=== PATIENT | male | born 1960 | race Caucasian/White ===

== ENCOUNTER 2016-10-06 22:35 | Emergency (ER) | payer MEDICARE ==
[2016-10-06] MEDS ORDERED: MIDAZOLAM 2 MG/2 ML INJ IV ONE (22:47)
[2016-10-06] MEDS ORDERED: NORMAL SALINE 1000 ML 1,000 ML IV ONE ×2 (22:48→23:37)
[2016-10-06] MEDS ORDERED: MIDAZOLAM 2 MG/2 ML INJ ONE (22:48)
--- NOTE | 2016-10-06 22:49 | ER Document Report ---
ED General - General Stated Complaint: ALTERED MENTAL STATUS Time Seen by Provider: 10/06/16 22:47 Cannot obtain history due to: Altered mental status Notes: Patient is a 56-year-old male with unknown past medical history although he reports a history of anxiety who presents after apparently driving always from [facility] today specifically to come to come to [facility]. Patient states he drove for the past 16 hours without stopping except for gasoline. States he has only urinated once in the past 24 hours. History is otherwise extremely limited as patient has severely pressured speech, is tangential in his thought process and is unable to provide any meaningful information other than that he is worried that he may be having a stroke. - Related Data Allergies/Adverse Reactions: ketorolac [From Toradol] Adverse Reaction (Verified 10/06/16 22:53) Home Medications: Current Home Medications Aspirin [Ecotrin] 81 mg PO DAILY 10/06/16 [History] Buprenorphine 1 each TD 10/06/16 [History] Caffeine 2 tab PO BID 10/06/16 [History] Clonazepam [Clonazepam] 0.5 mg PO BID PRN 10/06/16 [History] Ibuprofen [Motrin 600 mg Tablet] 2 - 3 tab PO PRN PRN 10/06/16 [History] Multivitamin [Multivitamins] 1 tab PO DAILY 10/06/16 [History] Pregabalin [Lyrica 75 mg Capsule] 75 mg PO TID 10/06/16 [History] Topiramate 50 mg PO QHS 10/06/16 [History] Trazodone HCl 1 - 3 tab PO QHS PRN 10/06/16 [History] Past Medical History - General Information source: Patient Cannot obtain history due to: Uncooperative, Altered mental status - Social History Smoking Status: Never Smoker Frequency of alcohol use: None Drug Abuse: None - There is no breakdown Lives with: Other Family History: Reviewed & Not Pertinent Review of Systems - Review of Systems -: Yes ROS unobtainable due to patient's medical condition Physical Exam - Vital signs Vitals: Resp Pulse Ox 16 100 10/06/16 22:47 10/06/16 22:47 Interpretation: Hypertensive, Tachycardic, Tachypneic Notes: PHYSICAL EXAMINATION: GENERAL: Agitated, somewhat combative. HEAD: Atraumatic, normocephalic. EYES: Pupils equal round and reactive to light, extraocular movements intact, sclera anicteric, conjunctiva are normal. ENT: nares patent, oropharynx clear without exudates. Dry mucous membranes. NECK: Normal range of motion, supple without lymphadenopathy LUNGS: Breath sounds clear to auscultation bilaterally and equal. No wheezes rales or rhonchi. Hyperventilating HEART: Regular tachycardia without murmurs ABDOMEN: Soft, nontender, normoactive bowel sounds. No guarding, no rebound. No masses appreciated. EXTREMITIES: Normal range of motion, no pitting or edema. No cyanosis. NEUROLOGICAL: Face symmetric. Tongue protrudes midline. Extraocular motions intact. Pupils are 2 mm and equally reactive. Pressured, fluent speech. 5 out of 5 strength in both the distal and proximal upper and lower extremities bilaterally. Sensation is grossly intact throughout. PSYCH: Presents is acutely manic with pressured speech, tangential through process SKIN: Warm, Dry, normal turgor, no rashes or lesions noted. Course - Re-evaluation Re-evalutation: 10/06/16 22:48 Patient presents acutely agitated, tremulous, tangential thought process although does not appear to be actively responding to internal stimuli. He has very pressured speech and presents as acutely manic. The patient did drive himself here today all the way from [facility] states he only stopped for gas did not eat or drink and has only urinated once in the past 24 hours. Patient is a very otherwise difficult historian and has difficulty answering my questions. He does not have any focal neurologic deficits on examination. Does appear somewhat dehydrated and appears likewise to be having a panic attack with hyperventilation, tachycardia, and tremulousness. IV access is established, IV midabdomen will be administered. Will begin IV fluids given that he does appear dehydrated and is also quite tachycardic. Will obtain broad laboratories, CT the head, reassess. Patient is critically ill at this time and undifferentiated altered mental status and require frequent reassessments. 10/06/16 23:37 Patient is much more calm, cooperative relaxed at this time vitals have normalized after receiving Versed and fluids. CT the head is unremarkable. Laboratory to demonstrate findings consistent with acute dehydration which is consistent with patient's report that he has not really been eating or drinking over the last several days and not urinated once in the past 24 hours. He will be evaluated by psychiatry in the morning. Awaiting his urine results. He is no longer unstable at this time. 10/07/16 00:29 Patient is calm, cooperative now although remains with some mildly pressured speech. He continues to deny any acute safety concerns. He does not meet criteria for involuntary commitment at this time as he denies any acute safety concerns, has a much clearer thought process, and did not clearly present with any dangerous behavior toward anybody else. He is medically cleared at this time for evaluation in the morning. - Vital Signs Vital signs: Temp Pulse Resp BP Pulse Ox 23 H 135/92 H 94 10/06/16 23:01 10/06/16 23:01 10/06/16 23:01 - Laboratory Result Diagrams: 10/06/16 22:41 10/06/16 22:41 Laboratory results interpreted by me: 10/06/16 10/06/16 10/07/16 22:41 22:41 00:00 WBC 14.9 H RDW 14.6 H Absolute Neutrophils 9.9 H Sodium 147.2 H Chloride 119 H Carbon Dioxide 15 L BUN 31 H Creatinine 1.99 H Est GFR ( Amer) 42 L Est GFR (Non-Af Amer) 35 L Calcium 10.5 H Total Protein 8.5 H Urine Protein 100 H Urine Ascorbic Acid 20 H Salicylates < 1.0 L Acetaminophen < 10 L - Diagnostic Test Radiology reviewed: Image reviewed, Reports reviewed Radiology results interpreted by me: 10/07/16 00:29 CT head: No acute intracranial bleed - EKG Interpretation by Me Additional EKG results interpreted by me: 10/07/16 00:30 Sinus rhythm. Rate 97. Intermittent PVCs. No ST elevations or depressions. QTC is 417. Critical Care Note - Critical Care Note Total time excluding time spent on procedures (mins): 38 Comments: Critical care time spent obtaining history from patient or surrogate, discussions with consultants, development of treatment plan with patient or surrogate, evaluation of patient's response to treatment, examination of patient , ordering and performing treatments and interventions, ordering and review of laboratory studies, re-evaluation of patient's condition, ordering and review of radiographic studies and review of old charts Discharge - Discharge Clinical Impression: Manic state, Agitation Altered mental status Qualifiers: Altered mental status type: unspecified Qualified Code(s): R41.82 - Altered mental status, unspecified Condition: Stable Disposition: PSYCH HOSP/UNIT
[2016-10-06 23:10] LABS: ABSOLUTE EOSINOPHILS # (AUTO) 0.1 10^3/uL (0.0-0.6); ABSOLUTE MONOCYTES (AUTO) 0.9 10^3/uL (0.1-1.4); ABSOLUTE NEUT (AUTO) 9.9 10^3/uL (1.7-8.2); BASOPHILS % (AUTO) 0.3 % (0-2); EOSINOPHILS % (AUTO) 0.8 % (0-6); HEMATOCRIT 40.8 % (37.9-51.0); HGB HCT DIFFERENCE 1.2; LYMPHOCYTES % (AUTO) 26.6 % (13-45); MEAN CORPUSCULAR HEMOGLOBIN 31.2 pg (27.0-33.4); MEAN CORPUSCULAR HGB CONC 34.3 g/dL (32.0-36.0); MEAN CORPUSCULAR VOLUME 91 fl (80-97); MONOCYTES % (AUTO) 5.9 % (3-13); RED BLOOD COUNT 4.49 10^6/uL (4.35-5.55); RED CELL DISTRIBUTION WIDTH 14.6 % (11.5-14.0); SEGMENTED NEUTROPHILS % (AUTO) 66.4 % (42-78); WHITE BLOOD COUNT 14.9 10^3/uL (4.0-10.5)
--- NOTE | 2016-10-06 23:19 | RADIOLOGY REPORT (SQ) ---
EXAM DESCRIPTION: CT HEAD WITHOUT COMPLETED DATE/TIME: 10/06/2016 11:10 pm REASON FOR STUDY: ams COMPARISON: None. TECHNIQUE: Axial images acquired through the brain without intravenous contrast. Images reviewed wi th bone, brain and subdural windows. Images stored on PACS. All CT scanners at this facility use dose modulation, iterative reconstruction, and/or weight based d osing when appropriate to reduce radiation dose to as low as reasonably achievable (ALARA). [facility]: Dose Right [facility]: CareDose [facility]: Dose Right [facility]: Teradose 4D [facility]: Domains Income RADIATION DOSE: mGy. LIMITATIONS: None. FINDINGS: VENTRICLES: Prominent. CEREBRUM: No masses. No hemorrhage. No midline shift. Areas of low density in the white matter mos t likely due to chronic micro-vascular ischemic change. No evidence for acute infarction. CEREBELLUM: No masses. No hemorrhage. No alteration of density. No evidence for acute infarction. EXTRAAXIAL SPACES: Mild age-related involutional change. No fluid collections. No masses. ORBITS AND GLOBE: No intra- or extraconal masses. Normal contour of globe without masses. CALVARIUM: No fracture. PARANASAL SINUSES: No fluid or mucosal thickening. SOFT TISSUES: No mass or hematoma. OTHER: Atherosclerotic vascular calcifications are seen within the cavernous segments of the internal carotid arteries bilaterally seen. There appear to be supernumerary teeth imbedded within the hard palate. IMPRESSION: MILD CHRONIC CHANGES OF ATROPHY AND MICROVASCULAR ISCHEMIA. NO ACUTE PROCESS. TECHNICAL DOCUMENTATION: JOB ID: [id number] Quality ID # [id number]: Final reports with documentation of one or more dose reduction techniques (e.g., Au tomated exposure control, adjustment of the mA and/or kV according to patient size, use of iterative reconstruction technique) 2010 [employer]- All Rights Reserved
[2016-10-06 23:31] LABS: ALANINE AMINOTRANSFERASE 49 U/L (21-72); ALBUMIN 4.7 g/dL (3.5-5.0); ALKALINE PHOSPHATASE 83 U/L (38-126); ANION GAP 13 (5-19); ASPARTATE AMINO TRANSFERASE 31 U/L (17-59); BILIRUBIN,DIRECT 0.4 mg/dL (0.0-0.4); BILIRUBIN,TOTAL 0.6 mg/dL (0.2-1.3); BLOOD UREA NITROGEN 31 mg/dL (7-20); CALCIUM 10.5 mg/dL (8.4-10.2); CARBON DIOXIDE 15 mmol/L (22-30); CHLORIDE 119 mmol/L (98-107); CREATININE RESULT 1.99 mg/dL (0.52-1.25); GLUCOSE 106 mg/dL (75-110); POTASSIUM 4.2 mmol/L (3.6-5.0); SODIUM 147.2 mmol/L (137-145); TOTAL PROTEIN 8.5 g/dL (6.3-8.2)
[2016-10-06 23:32] LABS: ALCOHOL < 10 mg/dL (NONE DETECTED)
[2016-10-07 00:21] LABS: APPEARANCE,URINE CLEAR; BILIRUBIN,URINE NEGATIVE (NEGATIVE); GLUCOSE, URINE NEGATIVE (NEGATIVE); KETONES,URINE NEGATIVE (NEGATIVE); LEUKOCYTE ESTERASE,URINE NEGATIVE (NEGATIVE); NITRITE,URINE NEGATIVE (NEGATIVE); PROTEIN,URINE 100 mg/dL (NEGATIVE); URINE SPECIFIC GRAVITY 1.015; UROBILINOGEN,URINE NEGATIVE mg/dL (<2.0)
[2016-10-07 02:10] LABS: URINE BARBITURATES SCREEN UNCONFIRMED POSITIVE; URINE METHADONE SCREEN NEGATIVE; URINE OPIATES LOW NEGATIVE; URINE PHENCYCLIDINE SCREEN NEGATIVE
[2016-10-07] MEDS ORDERED: CLONAZEPAM 1 MG TABLET PO ONE (07:34)
--- NOTE | 2016-10-07 11:12 | EKG REPORT ---
SEVERITY:- OTHERWISE NORMAL ECG - SINUS RHYTHM VENTRICULAR PREMATURE COMPLEX : Confirmed by: Yajaira Reyes MD 07-Oct-2016 11:11:52
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
[2016-10-07 14:00] VITALS: BP 161/95
== END 2016-10-07 13:24 | disposition home or self-care (01) ==
LOC: ER 22:35
DX: R41.82 Altered mental status, unspecified (principal); R45.1 Restlessness and agitation; Z79.899 Other long term (current) drug therapy
CPT/HCPCS: 93005; 99291; 96361; 96374; 36415; 82962; 80307 ×4; 85025; 80053; 81001; 70450; 93010; J2250; A9270; J7030 ×2

== ENCOUNTER 2017-10-26 14:42 | Emergency (ER) | payer MEDICARE ==
[2017-10-26] MEDS: NORMAL SALINE 1000 ML 1,000 ML IV PRN ×2 (15:10→15:31)
--- NOTE | 2017-10-26 15:17 | ER Document Report ---
ED Medical Screen (RME) - General Stated Complaint: CHEST PAIN Time Seen by Provider: 10/26/17 15:00 - HPI Notes: 10/26/17 15:13 Patient brought in by EMS for nausea vomiting diarrhea hours. Patient states lower abdominal pain patient upon arrival here to the ER tachycardic hypotensive. - Related Data Allergies/Adverse Reactions: ketorolac [From Toradol] Adverse Reaction (Verified 10/06/16 22:53) Review of Systems - Review of Systems Respiratory: Stridor Gastrointestinal: Abdominal pain, Diarrhea, Nausea Physical Exam - Cardiovascular Rhythm: Regular, Tachycardia Heart sounds: Normal auscultation - Abdominal Tenderness: Other - Soft Course - Re-evaluation Re-evalutation: 10/26/17 15:14 EKG was ordered showing sinus tachycardia. 2 large-bore IVs have been established with fluid instilling patient also has an IO in the right lower extremity. Patient on a nonrebreather. Patient's saturations at this time 92% . Patient lungs are otherwise clear. Concern for hypovolemia. Also according to EMS initially concerned for a STEMI However EKGs were faxed to [facility] and reviewed by the STEMI team there deemed not a STEMI. EKG at this time shows possible slight elevation in V6 however there is no signs of changes in contiguous leads. EKG does show sinus tachycardia. Because of low O2 sat on 100% we will order BiPAP for the patient. I discussed the initial presentation of the patient with colleague Apolinar who will eval the pt - Laboratory Result Diagrams: 10/26/17 14:55 10/26/17 14:55
[2017-10-26 15:22] LABS: VENOUS BLOOD BASE EXCESS -7.9 mmol/L; VENOUS BLOOD PCO2 38.9 mmHg (35-63); VENOUS BLOOD PH 7.28 (7.30-7.42)
[2017-10-26] MEDS ORDERED: PIPERACILLIN/TAZOBACTAM 4.5 GM VIAL IV ONE (15:32)
--- NOTE | 2017-10-26 15:32 | ER Document Report ---
ED General - General Mode of Arrival: Medic Information source: Patient <ARNIE GARCIA - Last Filed: 10/26/17 21:30> <APOLINARMAURA - Last Filed: 10/26/17 21:32> - General Chief Complaint: Nausea/Vomiting/Diarrhea Stated Complaint: CHEST PAIN Time Seen by Provider: 10/26/17 15:00 Notes: Patient is a 57 year old male on chronic pain management presents to the emergency department via EMS complaining of nausea and vomiting for 2-3 days with an associated symptom of lower abdominal pain. Patient states he was recently diagnosed with bronchitis and subsequently prescribed 2 antibiotics and steroids. He states he presented to the emergency department today when he began to have difficulty breathing and diffuse chest pain. He states he has had some blood in his stool further stating he was previously constipated and believes the bleeding is from tearing with exertion during his bowel movements. He denies any hematemesis. Patient presented to the emergency department hypotensive, hypoxic and tachycardic with an IO in the right lower extremity. EMS was initally concerned for a STEMI although EKG were faxed to [facility] and reviewed by a STEMI team who determined the patient was not a STEMI. (ARNIE GARCIA) - Related Data Allergies/Adverse Reactions: ketorolac [From Toradol] Adverse Reaction (Verified 10/06/16 22:53) Past Medical History - General Information source: Patient - Social History Smoking Status: Current Every Day Smoker Chew tobacco use (# tins/day): No Frequency of alcohol use: Heavy Drug Abuse: None Family History: Reviewed & Not Pertinent Patient has suicidal ideation: No Patient has homicidal ideation: No - Past Medical History Cardiac Medical History: Reports: Hx Hypertension Past Surgical History: Reports: Hx Orthopedic Surgery <ARNIE GARCIA - Last Filed: 10/26/17 21:30> Review of Systems - Review of Systems Constitutional: No symptoms reported EENT: No symptoms reported Cardiovascular: See HPI, Chest pain Respiratory: See HPI Gastrointestinal: See HPI, Diarrhea, Nausea, Vomiting Genitourinary: No symptoms reported Male Genitourinary: No symptoms reported Musculoskeletal: No symptoms reported Skin: No symptoms reported Hematologic/Lymphatic: No symptoms reported Neurological/Psychological: No symptoms reported -: Yes All other systems reviewed and negative <ARNIE GARCIA - Last Filed: 10/26/17 21:30> Physical Exam <ARNIE GARCIA - Last Filed: 10/26/17 21:30> <MAURA BANDA - Last Filed: 10/26/17 21:32> - Vital signs Vitals: Resp BP Pulse Ox 33 H 83/57 L 92 10/26/17 14:55 10/26/17 14:55 10/26/17 14:55 - Notes Notes: GENERAL: Awake, appears uncomfortable, ill appearing. No acute distress. HEAD: Normocephalic, atraumatic. EYES: Pupils equal, round, and reactive to light. Extraocular movements intact. ENT: Oral mucosa dry, tongue midline. NECK: Full range of motion. Supple. Trachea midline. LUNGS: Rhonchi bilaterally, on a non-rebreather at bedside. HEART: Tachycardic. No murmurs, gallops, or rubs. ABDOMEN: Soft, tender to palpation to RUQ, LUQ, RLL, LLQ, non tender to the epigastrium. Non-distended. Bowel sounds present in all 4 quadrants. EXTREMITIES: Moves all 4 extremities spontaneously. No edema, radial pulses 2/4 bilaterally,decreased dorsalis pedis bilaterally . No cyanosis. NEUROLOGICAL: Alert and oriented x3. Normal speech. PSYCH: Normal affect, normal mood. SKIN: Core hot touch, extremities cool to touch, dry, normal turgor. No rashes or lesions noted. (ARNIE GARCIA) Course - Laboratory Result Diagrams: 10/26/17 17:00 10/26/17 17:00 <ARNIE GARCIA - Last Filed: 10/26/17 21:30> - Laboratory Result Diagrams: 10/26/17 17:00 10/26/17 17:00 <MAURA BANDA - Last Filed: 10/26/17 21:32> - Re-evaluation Re-evalutation: 10/26/17 21:23 Patient initially showed up was hypotensive and tachycardic but afebrile. He was also tachypneic and hypoxic. Full septic workup was initiated, patient was placed on BiPAP and his hypoxia responded well to this. Venous blood gas showed acidosis with pH of 7.28, no evidence of CO2 retention, he was given an albuterol treatment and he is now breathing much more easily, patient was able to be taken off of the BiPAP and is maintaining his saturations at 95% on 4 L via nasal cannula. When removed from BiPAP he became less hypotensive. Patient was given a 3 L bolus of crystalloids, initially given 2 L normal saline and then a 3 L of lactated Ringer's. Patient is now receiving lactated Ringer's at 250 mL's per hour. Lactic acid markedly elevated at 5.1, Zosyn started for sepsis, patient ended up having a grossly bloody bowel movement here , this is different than his initial report however he then told the nurse that he had been having grossly bloody diarrhea. CBC shows leukocytosis of 25.9, there is no anemia, hemoglobin 17, platelets normal, INR slightly prolonged at 1.11, chemistries show acute on chronic renal failure with a BUN of 61 and a creatinine of 3.1, potassium elevated at 5.8, this is treated with albuterol, calcium gluconate and bicarbonate as well as hydration, AST was elevated 76, alkaline phosphatase elevated at 567, troponin elevated at 5.82. ESR and CRP had been ordered because initial EKG raised the possibility of pericarditis however I think this is motion artifact mostly, ESR is normal, CRP is elevated at 54.1, lipase normal, urinalysis also so signs of blood and infection, there is large leukocyte esterase and 2+ bacteria. Urine drug screen shows opiates and benzos both which she is prescribed. Repeat lactic acid is improving at 2.5 , C. difficile PCR is pending. Chest x-ray shows no acute process. CT scan of the abdomen and pelvis reveals circumferential mural thickening of the transverse and descending colon with adjacent mesenteric fat stranding, appendix is not visualized, gallbladder is hydropic. Flagyl was added based off of the findings of colitis, I did then go ahead and discussed this patient with the wood boat builder supervisor Dr. Hernandez from [facility], based off of the LFTs she requested that we add a right upper quadrant ultrasound. This did not show any signs of cholecystitis or obstruction. Patient has been rechecked multiple times approximately every hour and he is improving. See sepsis recheck note for exact details. Dr. Zane Michaels did accept the patient to her service at [facility]. Patient is being transferred because he has an ongoing lower GI bleed and we do not have GI group contract analyst, he has an elevated troponin consistent with a non-STEMI and we will not have access to cardiac catheterization for a another 3 days, he is acute renal failure we do not have nephrology on-call. 10/26/17 21:32 Small dose of Ativan given due to his history of heavy alcohol use and the fact that he has been having vomiting for several days, some of his tachycardia may be coming from withdrawal as it is persistent despite normalization of his blood pressure. Aspirin was withheld as he is having a GI bleed and is allergic to ketorolac. (MAURA BANDA) - Vital Signs Vital signs: Temp Pulse Resp BP Pulse Ox 98.5 F 22 H 106/94 H 96 10/26/17 15:44 10/26/17 21:11 10/26/17 21:11 10/26/17 21:11 - Laboratory Laboratory results interpreted by me: 10/26/17 10/26/17 10/26/17 14:55 14:55 15:33 WBC RBC Hct RDW Seg Neuts % (Manual) Lymphocytes % (Manual) Abs Neuts (Manual) VBG pH 7.28 L VBG HCO3 18.0 L Potassium Carbon Dioxide BUN Creatinine Est GFR ( Amer) Est GFR (Non-Af Amer) Glucose POC Glucose 137 H Lactic Acid 5.1 H Direct Bilirubin AST Alkaline Phosphatase C-Reactive Protein Albumin Urine Protein Urine Blood Urine Urobilinogen Ur Leukocyte Esterase 10/26/17 10/26/17 10/26/17 17:00 17:00 17:28 WBC 25.9 H RBC 5.57 H Hct 51.1 H RDW 14.3 H Seg Neuts % (Manual) 88 H Lymphocytes % (Manual) 7 L Abs Neuts (Manual) 22.8 H VBG pH VBG HCO3 Potassium 5.8 H Carbon Dioxide 16 L BUN 61 H Creatinine 3.10 H Est GFR ( Amer) 25 L Est GFR (Non-Af Amer) 21 L Glucose 121 H POC Glucose Lactic Acid Direct Bilirubin 0.8 H AST 76 H Alkaline Phosphatase 567 H C-Reactive Protein 54.1 H Albumin 3.4 L Urine Protein 30 H Urine Blood MODERATE H Urine Urobilinogen 2.0 H Ur Leukocyte Esterase LARGE H 10/26/17 18:55 WBC RBC Hct RDW Seg Neuts % (Manual) Lymphocytes % (Manual) Abs Neuts (Manual) VBG pH VBG HCO3 Potassium Carbon Dioxide BUN Creatinine Est GFR ( Amer) Est GFR (Non-Af Amer) Glucose POC Glucose Lactic Acid 2.5 H Direct Bilirubin AST Alkaline Phosphatase C-Reactive Protein Albumin Urine Protein Urine Blood Urine Urobilinogen Ur Leukocyte Esterase - EKG Interpretation by Me Additional EKG results interpreted by me: 10/26/17 21:27 Initial EKG shows sinus tachycardia at a rate of 139, right axis deviation, poor R-wave progression, significant baseline artifact, difficult to determine ST segment elevation although there is no ST segment depression and there are no reciprocal changes. Possible ST segment elevation in V6 but again so much baseline artifact but I cannot tell, similarly there may be some ST segment elevation in lead II but there is none in lead III or aVF per my interpretation. (MAURA BANDA) Critical Care Note - Critical Care Note Total time excluding time spent on procedures (mins): 80 <MAURA BANDA - Last Filed: 10/26/17 21:32> Discharge <ARNIE GARCIA - Last Filed: 10/26/17 21:30> <MAURA BANDA - Last Filed: 10/26/17 21:32> - Discharge Clinical Impression: Hyperkalemia, Lower GI bleed, Colitis Sepsis Qualifiers: Sepsis type: sepsis due to unspecified organism Qualified Code(s): A41.9 - Sepsis, unspecified organism Acute on chronic renal failure Qualifiers: Acute renal failure type: unspecified Chronic kidney disease stage: stage 3 ( moderate) Qualified Code(s): N17.9 - Acute kidney failure, unspecified Condition: Critical Disposition: [facility] Scribe Attestation: 10/26/17 21:32 I personally performed the services described in the documentation, reviewed and edited the documentation which was dictated to the scribe in my presence, and it accurately records my words and actions. (MAURA BANDA) Scribe Documentation - Scribe Written by Ovidio:: Ovidio Marie, 10/26/2017 16:26 acting as scribe for :: Apolinar <ARNIE GARCIA - Last Filed: 10/26/17 21:30> Sepsis <ARNIE GARCIA - Last Filed: 10/26/17 21:30> - Sepsis Documentation Sepsis Patient: Yes - Vital Signs Interpretation: Hypotensive, Tachycardic - Cardiovascular Peripheral Pulse Strength: Normal Capillary refill: > 3 seconds Rhythm: Regular, Tachycardia Heart Sounds: Normal auscultation - Respiratory Breath Sounds: Clear Respiratory Status: Tachypnea - Skin Skin Color: Pale <MAURA BANDA - Last Filed: 10/26/17 21:32> - Vital Signs Vitals: Temp Pulse Resp BP Pulse Ox 98.5 F 22 H 106/94 H 96 10/26/17 15:44 10/26/17 21:11 10/26/17 21:11 10/26/17 21:11 On recheck at 1544 temperature is 98.5, heart rate is 121, blood pressure was 91 /67, respiratory rate was 17, oxygenation was 100% on nonrebreather (MAURA BANDA)
[2017-10-26] MEDS ORDERED: ALBUTEROL SULFATE 0.083% NEB 2.5 MG/3 ML AMPUL NEB ONE (15:33)
--- NOTE | 2017-10-26 15:54 | RADIOLOGY REPORT (SQ) ---
EXAM DESCRIPTION: CHEST SINGLE VIEW COMPLETED DATE/TIME: 10/26/2017 3:46 pm REASON FOR STUDY: tachy hypotensive COMPARISON: None. EXAM PARAMETERS: NUMBER OF VIEWS: One view. TECHNIQUE: Single frontal radiographic view of the chest acquired. RADIATION DOSE: NA LIMITATIONS: None. FINDINGS: LUNGS AND PLEURA: No focal consolidation, masses or pneumothorax. Incidental note is made of a partially calcified granuloma at the left lung base. No pleural effusion. MEDIASTINUM AND HILAR STRUCTURES: No masses. Contour normal. HEART AND VASCULAR STRUCTURES: Heart normal in size. Normal vasculature. BONES: No acute findings. HARDWARE: None in the chest. OTHER: No other significant finding. IMPRESSION: NO ACUTE RADIOGRAPHIC FINDING IN THE CHEST. TECHNICAL DOCUMENTATION: JOB ID: [id number] [employer]- All Rights Reserved Reading location - IP/workstation name: [email or web address]
[2017-10-26] MEDS ORDERED: RINGERS SOLUTION,LACTATED 1,000 ML IV ONE ×2 (16:40→21:06)
--- NOTE | 2017-10-26 17:06 | EKG REPORT ---
SEVERITY:- BORDERLINE ECG - SINUS TACHYCARDIA LOW VOLTAGE WITH RIGHT AXIS DEVIATION BORDERLINE ST ELEVATION, INFERIOR LEADS : Confirmed by: Ricardo Bonner MD 26-Oct-2017 17:05:35
--- NOTE | 2017-10-26 17:07 | EKG REPORT ---
SEVERITY:- ABNORMAL ECG - SINUS TACHYCARDIA LOW VOLTAGE WITH RIGHT AXIS DEVIATION ST ELEVATION SUGGESTS PERICARDITIS : Confirmed by: Ricardo Bonner MD 26-Oct-2017 17:06:40
[2017-10-26 17:23] LABS: HEMATOCRIT 51.1 % (37.9-51.0); MEAN CORPUSCULAR HEMOGLOBIN 30.6 pg (27.0-33.4); MEAN CORPUSCULAR HGB CONC 33.4 g/dL (32.0-36.0); MEAN CORPUSCULAR VOLUME 92 fl (80-97); PLATELET COUNT 165 10^3/uL (150-450); RED BLOOD COUNT 5.57 10^6/uL (4.35-5.55); RED CELL DISTRIBUTION WIDTH 14.3 % (11.5-14.0); WHITE BLOOD COUNT 25.9 10^3/uL (4.0-10.5)
[2017-10-26 17:29] LABS: INTERNATIONAL RATION (INR) 1.11; PROTHROMBIN TIME 14.9 SEC (11.4-15.4)
[2017-10-26 17:34] LABS: ALANINE AMINOTRANSFERASE 45 U/L (21-72); ALBUMIN 3.4 g/dL (3.5-5.0); ALKALINE PHOSPHATASE 567 U/L (38-126); ANION GAP 15 (5-19); ASPARTATE AMINO TRANSFERASE 76 U/L (17-59); BILIRUBIN,DIRECT 0.8 mg/dL (0.0-0.4); BILIRUBIN,TOTAL 0.8 mg/dL (0.2-1.3); BLOOD UREA NITROGEN 61 mg/dL (7-20); C-REACTIVE PROTEIN 54.1 mg/L (<10.0); CARBON DIOXIDE 16 mmol/L (22-30); CHLORIDE 106 mmol/L (98-107); GLUCOSE 121 mg/dL (75-110); LIPASE 82.6 U/L (23-300); POTASSIUM 5.8 mmol/L (3.6-5.0); SODIUM 137.2 mmol/L (137-145); TOTAL PROTEIN 6.5 g/dL (6.3-8.2)
[2017-10-26 17:41] LABS: ABSOLUTE LYMPHOCYTES# (MANUAL) 2.1 10^3/uL (0.5-4.7); ABSOLUTE NEUTROPHILS# (MANUAL) 22.8 10^3/uL (1.7-8.2); BASOPHILS % (MANUAL) 0 % (0-2); EOSINOPHILS % (MANUAL) 0 % (0-6); LYMPHOCYTES % (MANUAL) 7 % (13-45); MONOCYTES % (MANUAL) 4 % (3-13); SEGMENTED NEUTROPHILS % (MAN) 88 % (42-78); TOTAL CELLS COUNTED 100
[2017-10-26 17:42] LABS: PLATELET COMMENT ADEQUATE; RBC MORPHOLOGY COMMENT NORMO-CYTIC/CHROMIC
[2017-10-26 18:01] LABS: ERYTHROCYTE SEDIMENTATION RATE 9 mm/hr (0-20)
[2017-10-26 18:06] LABS: APPEARANCE,URINE CLOUDY; BILIRUBIN,URINE NEGATIVE (NEGATIVE); COLOR,URINE AMBER; GLUCOSE, URINE NEGATIVE (NEGATIVE); KETONES,URINE NEGATIVE (NEGATIVE); LEUKOCYTE ESTERASE,URINE LARGE (NEGATIVE); NITRITE,URINE NEGATIVE (NEGATIVE); PROTEIN,URINE 30 mg/dL (NEGATIVE); URINE SPECIFIC GRAVITY 1.015
[2017-10-26 18:17] LABS: URINE AMPHETAMINES SCREEN NEGATIVE; URINE BARBITURATES SCREEN NEGATIVE; URINE BENZODIAZEPINES SCREEN UNCONFIRMED POSITIVE; URINE COCAINE SCREEN NEGATIVE; URINE MARIJUANA (THC) SCREEN NEGATIVE; URINE METHADONE SCREEN NEGATIVE; URINE PHENCYCLIDINE SCREEN NEGATIVE
--- NOTE | 2017-10-26 18:25 | RADIOLOGY REPORT (SQ) ---
EXAM DESCRIPTION: CT ABD/PELVIS NO ORAL OR IV COMPLETED DATE/TIME: 10/26/2017 6:04 pm REASON FOR STUDY: vomiting, diarrhea, bloody stool COMPARISON: None. TECHNIQUE: CT scan of the abdomen and pelvis performed without intravenous or oral contrast. Images reviewed with lung, soft tissue, and bone windows. Reconstructed coronal and sagittal MPR images revi ewed. All images stored on PACS. All CT scanners at this facility use dose modulation, iterative reconstruction, and/or weight based d osing when appropriate to reduce radiation dose to as low as reasonably achievable (ALARA). [facility]: Dose Right [facility]: CareDose [facility]: Dose Right [facility]: Teradose 4D [facility]: Smart Lango RADIATION DOSE: CT Rad equipment meets quality standard of care and radiation dose reduction techniq ues were employed. CTDIvol: 11.3 mGy. DLP: 643 mGy-cm.mGy. LIMITATIONS: The dome of the right lobe of the liver is not included in the imaged field of view. FINDINGS: LOWER CHEST: No significant findings. No nodules or infiltrates. NON-CONTRASTED LIVER, SPLEEN, ADRENALS: Evaluation limited by lack of IV contrast and truncated field of view excluding the dome of the right hepatic lobe. Incidental note is made of scattered hepatic cysts. No identified significant masses. PANCREAS: No masses. No peripancreatic inflammatory changes. GALLBLADDER: Hydropic. No identified stones by CT criteria. No inflammatory changes to suggest kathy cystitis. RIGHT KIDNEY AND URETER: No suspicious masses. Assessment limited by lack of IV contrast. No signif icant calcifications. No hydronephrosis or hydroureter. LEFT KIDNEY AND URETER: No suspicious masses. Assessment limited by lack of IV contrast. No signifi cant calcifications. No hydronephrosis or hydroureter. AORTA AND RETROPERITONEUM: No aneurysm. No retroperitoneal masses or adenopathy. BOWEL AND PERITONEAL CAVITY: Circumferential mural thickening is seen of the transverse and descendin g colon with adjacent mesenteric fat stranding. The remaining bowel appears grossly unremarkable. APPENDIX: Not visualized. PELVIS, BLADDER, AND ABDOMINAL WALL:No abnormal masses. No free fluid. Bladder normal. BONES: No significant findings. OTHER: Severe degenerative changes are seen of the hips and spine. IMPRESSION: Inflammatory changes involving the transverse and descending colon, likely on the basis of long segment colitis. COMMENT: Quality ID # [id number]: Final reports with documentation of one or more dose reduction techniques (e.g., Automated exposure control, adjustment of the mA and/or kV according to patient size, use of iterative reconstruction technique) TECHNICAL DOCUMENTATION: JOB ID: [id number] [employer]- All Rights Reserved Reading location - IP/workstation name: [email or web address]
[2017-10-26] MEDS ORDERED: SODIUM BICARBONATE 8.4% INJ 50 MEQ/50 ML DISP.SYRIN IV ONE (18:41)
[2017-10-26] MEDS ORDERED: CALCIUM GLUCONATE 1000 MG/10 ML INJ IV ONE (18:41)
[2017-10-26] MEDS ORDERED: OXYCODONE HCL SR 10 MG TABLET PO ONE (18:53)
[2017-10-26] MEDS ORDERED: METRONIDAZOLE 500 MG/NS RTU 500 MG/100 ML RTUPB IV ONE (19:00)
--- NOTE | 2017-10-26 19:56 | RADIOLOGY REPORT (SQ) ---
EXAM DESCRIPTION: U/S ABDOMEN LIMITED W/O DOP COMPLETED DATE/TIME: 10/26/2017 7:44 pm REASON FOR STUDY: elevated LFTs COMPARISON: CT abdomen and pelvis 10/26/2017 TECHNIQUE: Dynamic and static grayscale images acquired of the abdomen and recorded on PACS. Wilnero slava selected color Doppler and spectral images recorded. LIMITATIONS: The pancreas and aorta are not adequately visualized. FINDINGS: PANCREAS: Not visualized. LIVER: No masses. Echotexture normal. LIVER VASCULATURE: Normal directional flow of the main portal vein and hepatic veins. GALLBLADDER: No stones. Normal wall thickness. No pericholecystic fluid. ULTRASOUND-DETECTED SULTANA'S SIGN: Not documented. INTRAHEPATIC DUCTS AND COMMON DUCT: CBD and intrahepatic ducts normal caliber. No filling defects. INFERIOR VENA CAVA: Normal flow. AORTA: Not adequately evaluated. RIGHT KIDNEY: Normal size. Normal echogenicity. No solid or suspicious masses. No hydronephrosis. No calcifications. PERITONEAL AND RIGHT PLEURAL SPACE: No ascites or effusions. OTHER: No other significant findings. IMPRESSION: Limited examination. The pancreas and aorta are not adequately evaluated. Otherwise un remarkable sonographic appearance of the right upper quadrant. TECHNICAL DOCUMENTATION: JOB ID: [id number] [employer]- All Rights Reserved Reading location - IP/workstation name: [email or web address]
[2017-10-26] MEDS ORDERED: ONDANSETRON HCL INJ/PF 4 MG/2 ML SDV IV ONE (21:06)
[2017-10-26] MEDS ORDERED: LORAZEPAM INJ 2 MG/1 ML VIAL IV ONE (21:29)
[2017-10-26 21:36] VITALS: BP 113/75
== END 2017-10-26 21:40 | disposition short-term general hospital (02) ==
LOC: ER 14:42
DX: A41.9 Sepsis, unspecified organism (principal); K52.9 Noninfective gastroenteritis and colitis, unspecified; K92.2 Gastrointestinal hemorrhage, unspecified; I12.9 Hypertensive chronic kidney disease with stage 1 through stage 4 chronic kidney disease, or unspecified chronic kidney disease; N18.3 Chronic kidney disease, stage 3 (moderate); N17.9 Acute kidney failure, unspecified; E87.5 Hyperkalemia; R74.8 Abnormal levels of other serum enzymes; R11.2 Nausea with vomiting, unspecified; R19.7 Diarrhea, unspecified; F17.200 Nicotine dependence, unspecified, uncomplicated; R07.9 Chest pain, unspecified; G89.29 Other chronic pain; Z79.891 Long term (current) use of opiate analgesic; Z79.899 Other long term (current) drug therapy; Z88.8 Allergy status to other drugs, medicaments and biological substances
CPT/HCPCS: 93005; 94640; 99291; 99292; 96361; 96375; 96365; 96367; 36415; 87040; 87086; 82962; 83690; 85025; 85652; 85610; 82272; 86140; 87088; 80053; 81001; 84484; 87186; 80307; 87493; 82803; 83605; 71045; 76705; 74176; 93010; 94660; J0610; A9270 ×2; J3490; J2405; J7030; J7120; J2543

== ENCOUNTER → 2018-03-28 | Outpatient (CLI) | payer MEDICARE, MEDICAID ==
[2018-03-28 17:52] LABS: ABSOLUTE LYMPHOCYTES (AUTO) 2.7 10^3/uL (0.5-4.7); ABSOLUTE MONOCYTES (AUTO) 0.5 10^3/uL (0.1-1.4); ABSOLUTE NEUT (AUTO) 7.4 10^3/uL (1.7-8.2); BASOPHILS % (AUTO) 0.3 % (0-2); HEMATOCRIT 43.3 % (37.9-51.0); HEMOGLOBIN 14.9 g/dL (13.5-17.0); LYMPHOCYTES % (AUTO) 25.2 % (13-45); MEAN CORPUSCULAR HEMOGLOBIN 29.8 pg (27.0-33.4); MEAN CORPUSCULAR HGB CONC 34.3 g/dL (32.0-36.0); MEAN CORPUSCULAR VOLUME 87 fl (80-97); MONOCYTES % (AUTO) 5.1 % (3-13); PLATELET COUNT 263 10^3/uL (150-450); RED BLOOD COUNT 4.98 10^6/uL (4.35-5.55); RED CELL DISTRIBUTION WIDTH 14.1 % (11.5-14.0); SEGMENTED NEUTROPHILS % (AUTO) 69.4 % (42-78); TOTAL CELLS COUNTED % (AUTO) 100 %; WHITE BLOOD COUNT 10.7 10^3/uL (4.0-10.5)
[2018-03-28 18:07] LABS: ALANINE AMINOTRANSFERASE 46 U/L (21-72); ALBUMIN 4.8 g/dL (3.5-5.0); ALKALINE PHOSPHATASE 100 U/L (38-126); ANION GAP 11 (5-19); ASPARTATE AMINO TRANSFERASE 41 U/L (17-59); BILIRUBIN,DIRECT 0.2 mg/dL (0.0-0.4); BILIRUBIN,TOTAL 0.4 mg/dL (0.2-1.3); BLOOD UREA NITROGEN 43 mg/dL (7-20); CALCIUM 10.6 mg/dL (8.4-10.2); CARBON DIOXIDE 25 mmol/L (22-30); CHLORIDE 105 mmol/L (98-107); GLUCOSE 105 mg/dL (75-110); POTASSIUM 5.5 mmol/L (3.6-5.0); SODIUM 140.6 mmol/L (137-145); TOTAL PROTEIN 8.1 g/dL (6.3-8.2)
== END ==
LOC: OD 16:41
PROVIDERS: ATTEND Family Medicine
DX: F41.1 Generalized anxiety disorder (principal); F51.01 Primary insomnia; I10 Essential (primary) hypertension; M47.812 Spondylosis without myelopathy or radiculopathy, cervical region; M47.814 Spondylosis without myelopathy or radiculopathy, thoracic region; M51.37 Other intervertebral disc degeneration, lumbosacral region
CPT/HCPCS: 36415; 80053; 85025

== ENCOUNTER 2018-10-12 13:46 | Emergency (ER) | payer MEDICAID, MEDICARE ==
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
[2018-10-12] MEDS ORDERED: NORMAL SALINE 1000 ML 1,000 ML IV ONE (16:22)
--- NOTE | 2018-10-12 16:31 | RADIOLOGY REPORT (SQ) ---
EXAM DESCRIPTION: CHEST SINGLE VIEW COMPLETED DATE/TIME: 10/12/2018 4:06 pm REASON FOR STUDY: weakness COMPARISON: 10/26/2017. EXAM PARAMETERS: NUMBER OF VIEWS: One view. TECHNIQUE: Single frontal radiographic view of the chest acquired. RADIATION DOSE: NA LIMITATIONS: None. FINDINGS: LUNGS AND PLEURA: Chronic interstitial changes. No focal infiltrates, masses or pneumotho rax. No pleural effusion. MEDIASTINUM AND HILAR STRUCTURES: No masses. Contour normal. HEART AND VASCULAR STRUCTURES: Heart normal in size. Normal vasculature. BONES: No acute findings. HARDWARE: None in the chest. OTHER: No other significant finding. IMPRESSION: NO ACUTE RADIOGRAPHIC FINDING IN THE CHEST. TECHNICAL DOCUMENTATION: JOB ID: [id number] [employer]- All Rights Reserved Reading location - IP/workstation name: [email or web address]
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
[2018-10-12 17:47] LABS: ABSOLUTE BASOPHILS # (AUTO) 0.1 10^3/uL (0.0-0.2); ABSOLUTE LYMPHOCYTES (AUTO) 2.3 10^3/uL (0.5-4.7); ABSOLUTE MONOCYTES (AUTO) 0.5 10^3/uL (0.1-1.4); ABSOLUTE NEUT (AUTO) 7.4 10^3/uL (1.7-8.2); BASOPHILS % (AUTO) 0.7 % (0-2); EOSINOPHILS % (AUTO) 0.1 % (0-6); HEMATOCRIT 42.6 % (37.9-51.0); HEMOGLOBIN 14.3 g/dL (13.5-17.0); LYMPHOCYTES % (AUTO) 22.1 % (13-45); MEAN CORPUSCULAR HEMOGLOBIN 29.9 pg (27.0-33.4); MEAN CORPUSCULAR HGB CONC 33.6 g/dL (32.0-36.0); MEAN CORPUSCULAR VOLUME 89 fl (80-97); MONOCYTES % (AUTO) 4.7 % (3-13); PLATELET COUNT 247 10^3/uL (150-450); RED BLOOD COUNT 4.78 10^6/uL (4.35-5.55); RED CELL DISTRIBUTION WIDTH 14.6 % (11.5-14.0); SEGMENTED NEUTROPHILS % (AUTO) 72.4 % (42-78); TOTAL CELLS COUNTED % (AUTO) 100 %; WHITE BLOOD COUNT 10.2 10^3/uL (4.0-10.5)
[2018-10-12 17:50] LABS: APPEARANCE,URINE CLOUDY; BILIRUBIN,URINE NEGATIVE (NEGATIVE); COLOR,URINE YELLOW; GLUCOSE, URINE NEGATIVE (NEGATIVE); KETONES,URINE NEGATIVE (NEGATIVE); LEUKOCYTE ESTERASE,URINE LARGE (NEGATIVE); NITRITE,URINE NEGATIVE (NEGATIVE); PROTEIN,URINE 30 mg/dL (NEGATIVE); UROBILINOGEN,URINE NEGATIVE mg/dL (<2.0)
[2018-10-12 18:07] LABS: ALBUMIN 4.8 g/dL (3.5-5.0); ALKALINE PHOSPHATASE 106 U/L (38-126); ANION GAP 12 (5-19); ASPARTATE AMINO TRANSFERASE 23 U/L (17-59); BILIRUBIN,DIRECT 0.6 mg/dL (0.0-0.4); BILIRUBIN,TOTAL 0.6 mg/dL (0.2-1.3); BLOOD UREA NITROGEN 26 mg/dL (7-20); CALCIUM 10.3 mg/dL (8.4-10.2); CARBON DIOXIDE 24 mmol/L (22-30); CHLORIDE 108 mmol/L (98-107); GLUCOSE 90 mg/dL (75-110); POTASSIUM 5.6 mmol/L (3.6-5.0); TOTAL PROTEIN 8.3 g/dL (6.3-8.2)
[2018-10-12 18:55] VITALS: BP 124/82
--- NOTE | 2018-10-12 23:11 | EKG REPORT ---
SEVERITY:- BORDERLINE ECG - SINUS RHYTHM LOW VOLTAGE FRONTAL LEADS : Confirmed by: Yajaira Reyes MD 12-Oct-2018 23:11:08
== END 2018-10-12 18:50 | disposition home or self-care (01) ==
LOC: ER 13:46
DX: N30.00 Acute cystitis without hematuria (principal); R53.1 Weakness; F17.210 Nicotine dependence, cigarettes, uncomplicated; M79.10 Myalgia, unspecified site; I10 Essential (primary) hypertension; J44.9 Chronic obstructive pulmonary disease, unspecified; G89.29 Other chronic pain; Z79.899 Other long term (current) drug therapy; Z88.8 Allergy status to other drugs, medicaments and biological substances
CPT/HCPCS: 93005; 99284; 96360; 36415; 83735; 85025; 80053; 81001; 71045; 93010; J7030

== ENCOUNTER 2018-11-15 08:30 | Emergency (ER) | payer MEDICARE, MEDICAID ==
--- NOTE | 2018-11-15 11:22 | ER Document Report ---
ED General - General Chief Complaint: Headache Stated Complaint: HEADACHE Time Seen by Provider: 11/15/18 11:20 Primary Care Provider: JUAN KAPADIA DO [Primary Care Provider] - Follow up in 3-5 days TRAVEL OUTSIDE OF THE [place] IN LAST 30 DAYS: No - HPI Notes: 58-year-old male to the emergency department with complaints of a headache that started this morning at 3 AM. Patient states that he awoke with this headache. He states that he feels like it wraps around his head and is dull and pounding. He denies any nausea or vomiting. He denies any photophobia. He states that he has had headaches before. He denies thunderclap headache. Patient states that he is on chronic pain medicine for his bad lower back and legs provided by his primary care Dr. Kapadia. States he takes 30 mg of oxycodone twice a day true Robert. He took it shortly after arrival here. He denies any fevers, chills, neck pain, passing out, arm weakness. - Related Data Allergies/Adverse Reactions: ketorolac tromethamine [From Toradol] Allergy (Unknown, Verified 10/12/18 13:49) NSAIDS (Non-Steroidal Anti-Inflamma [Nsaids] Allergy (Unknown, Verified 10/12/18 13:49) ketorolac [From Toradol] Adverse Reaction (Verified 10/12/18 13:49) Past Medical History - General Information source: Patient - Social History Smoking Status: Current Every Day Smoker Frequency of alcohol use: None Drug Abuse: None Family History: Reviewed & Not Pertinent Patient has suicidal ideation: No Patient has homicidal ideation: No - Past Medical History Cardiac Medical History: Reports: Hx Hypertension Denies: Hx Coronary Artery Disease, Hx Heart Attack Pulmonary Medical History: Reports: Hx COPD, Hx Pneumonia - HX. OF Denies: Hx Asthma, Hx Bronchitis Neurological Medical History: Denies: Hx Cerebrovascular Accident, Hx Seizures Renal/ Medical History: Reports: Hx Kidney Stones. Denies: Hx Peritoneal Dialysis Musculoskeletal Medical History: Reports Hx Arthritis - NEUROPATHIC NEUROPATHY Past Surgical History: Reports: Hx Orthopedic Surgery - stem cells implanted in spine - Immunizations Hx Diphtheria, Pertussis, Tetanus Vaccination: Yes Review of Systems - Review of Systems Constitutional: denies: Chills, Fever EENT: Sinus pressure. denies: Ear pain, Throat pain Cardiovascular: denies: Chest pain, Palpitations, Heart racing, Orthopnea, Dyspnea Respiratory: denies: Cough, Short of breath Gastrointestinal: denies: Abdominal pain, Diarrhea, Nausea, Vomiting Genitourinary: denies: Burning, Dysuria, Frequency, Flank pain, Hematuria, Incontinence Musculoskeletal: denies: Back pain Skin: No symptoms reported Neurological/Psychological: Headaches. denies: Numbness, Tingling -: Yes All other systems reviewed and negative Physical Exam - Vital signs Vitals: Resp BP Pulse Ox 7 L 129/84 H 94 11/15/18 08:41 11/15/18 08:41 11/15/18 08:41 Interpretation: Normal Notes: Initial vital signs in chart erroneous. Patient's vital signs are blood pressure 119/76 O2 sat of 94% on room air respiratory rate of 22 he is afebrile - General General appearance: Alert, Other - Chronically ill-appearing In distress: None - HEENT Head: Normocephalic, Atraumatic Eyes: Normal Pupils: PERRL Ears: Normal External canal: Normal Tympanic membrane: Normal Sinus: Normal Nasal: Normal Mouth/Lips: Normal Mucous membranes: Dry Pharynx: Normal. No: Erythema, Exudate Neck: Normal, Supple. No: Lymphadenopathy, Meningismus - Respiratory Respiratory status: No respiratory distress Chest status: Nontender Breath sounds: Normal Chest palpation: Normal - Cardiovascular Rhythm: Regular Heart sounds: Normal auscultation Murmur: No - Abdominal Inspection: Normal Distension: No distension Bowel sounds: Normal Tenderness: Nontender Organomegaly: No organomegaly - Neurological Neuro grossly intact: Yes Cognition: Normal Orientation: AAOx4 - Patient is oriented to person place time and events however he is just taken his pain medicine and is drowsy. He easily awakens and follows commands but sometimes has to be redirected. [place] Coma Scale Eye Opening: Spontaneous [place] Coma Scale Verbal: Oriented [place] Coma Scale Motor: Obeys Commands [place] Coma Scale Total: 15 Speech: Normal Cranial nerves: Normal. No: Facial palsy, Forehead sparing, Gaze palsy, Sensory deficit, Tongue deviation Cerebellar coordination: Other - Bilateral lower leg ataxia for which patient uses wheelchairhe states this is his baseline and it has not gotten worse since his headaches started Motor strength normal: LUE, RUE, LLE, RLE Additional motor exam normals: Equal postpartum nurse. No: Pronator drift Sensory: Normal - Psychological Associated symptoms: Normal affect, Normal mood - Skin Skin Temperature: Warm Skin Moisture: Dry Skin Color: Normal Course - Re-evaluation Re-evalutation: 11/15/18 13:53 Patient is doing much better after Reglan. He is also gotten a bag of liters because on exam he had dry mucosal membranes. Noted labs which does show a little increase in his chronic kidney disease is most likely dehydration in nature. He does not have an elevated white count and he is much more alert since he took his chronic pain medicines. He states that his headache is much improved. He would like to go home. Noted sinusitis on head CT. Patient is currently on antibiotic from his primary care and has recently been on Bactrim and Levaquin so we will not give another antibiotic. We will send home with a short steroid Dosepak. Have encouraged him to see Dr. Rolon without fail on Saturday or Saturday. He agrees with the plan - Vital Signs Vital signs: Temp Pulse Resp BP Pulse Ox 97.9 F 104 H 20 119/76 93 11/15/18 08:48 11/15/18 08:48 11/15/18 13:14 11/15/18 13:14 11/15/18 13:14 - Laboratory Result Diagrams: 11/15/18 08:17 11/15/18 08:17 Laboratory results interpreted by me: 11/15/18 11/15/18 08:17 08:17 Hgb 13.1 L RDW 15.0 H Creatinine 1.75 H Est GFR ( Amer) 49 L Est GFR (MDRD) Non-Af 40 L Glucose 117 H - Diagnostic Test Radiology reviewed: Image reviewed, Reports reviewed Discharge - Discharge Clinical Impression: Chronic kidney disease, Dehydration Headache Qualifiers: Headache type: unspecified Headache chronicity pattern: acute headache Intractability: not intractable Qualified Code(s): R51 - Headache Sinusitis Qualifiers: Sinusitis location: sphenoidal Condition: Stable Disposition: HOME, SELF-CARE Instructions: Headache ([facility]) Additional Instructions: PUSH FLUIDS. FOLLOW UP WITH DR. KAPADIA ON SATURDAY WITHOUT FAIL. TAKE MEDICINES PRESCRIBED. RETURN IF WORSENING SYMPTOMS. Prescriptions: Methylprednisolone [Medrol Dosepack (4 mg/Tab) 21 Tab/Dosepak] 4 mg PO ASDIR PRN #[id number] PRN Reason: Referrals: JUAN KAPADIA DO [Primary Care Provider] - Follow up in 3-5 days
[2018-11-15] MEDS ORDERED: METOCLOPRAMIDE HCL INJ/PF 10 MG/2 ML SDV IV ONE (11:38)
[2018-11-15] MEDS ORDERED: NORMAL SALINE 1000 ML 1,000 ML IV ONE (11:39)
[2018-11-15 11:55] LABS: ABSOLUTE LYMPHOCYTES (AUTO) 1.4 10^3/uL (0.5-4.7); ABSOLUTE MONOCYTES (AUTO) 0.4 10^3/uL (0.1-1.4); ABSOLUTE NEUT (AUTO) 5.3 10^3/uL (1.7-8.2); BASOPHILS % (AUTO) 0.3 % (0-2); EOSINOPHILS % (AUTO) 0.5 % (0-6); HEMATOCRIT 39.9 % (37.9-51.0); HEMOGLOBIN 13.1 g/dL (13.5-17.0); LYMPHOCYTES % (AUTO) 19.4 % (13-45); MEAN CORPUSCULAR HEMOGLOBIN 29.4 pg (27.0-33.4); MEAN CORPUSCULAR VOLUME 89 fl (80-97); MONOCYTES % (AUTO) 5.7 % (3-13); PLATELET COUNT 231 10^3/uL (150-450); RED BLOOD COUNT 4.48 10^6/uL (4.35-5.55); SEGMENTED NEUTROPHILS % (AUTO) 74.1 % (42-78); TOTAL CELLS COUNTED % (AUTO) 100 %; WHITE BLOOD COUNT 7.1 10^3/uL (4.0-10.5)
[2018-11-15 12:02] LABS: ALBUMIN 3.9 g/dL (3.5-5.0); ALKALINE PHOSPHATASE 103 U/L (38-126); ANION GAP 10 (5-19); ASPARTATE AMINO TRANSFERASE 24 U/L (17-59); BILIRUBIN,DIRECT 0.4 mg/dL (0.0-0.4); BILIRUBIN,TOTAL 0.4 mg/dL (0.2-1.3); BLOOD UREA NITROGEN 20 mg/dL (7-20); CARBON DIOXIDE 27 mmol/L (22-30); CHLORIDE 103 mmol/L (98-107); GLUCOSE 117 mg/dL (75-110); POTASSIUM 4.6 mmol/L (3.6-5.0); TOTAL PROTEIN 7.3 g/dL (6.3-8.2)
--- NOTE | 2018-11-15 12:29 | RADIOLOGY REPORT (SQ) ---
EXAM DESCRIPTION: CT HEAD WITHOUT COMPLETED DATE/TIME: 11/15/2018 12:19 pm REASON FOR STUDY: headache COMPARISON: 10/06/2016 TECHNIQUE: Axial images acquired through the brain without intravenous contrast. Images reviewed wi th bone, brain and subdural windows. Additional sagittal and coronal reconstructions were generated. Images stored on PACS. All CT scanners at this facility use dose modulation, iterative reconstruction, and/or weight based d osing when appropriate to reduce radiation dose to as low as reasonably achievable (ALARA). [facility]: Dose Right [facility]: CareDose [facility]: Dose Right [facility]: Teradose 4D [facility]: Smart BrightNest RADIATION DOSE: CT Rad equipment meets quality standard of care and radiation dose reduction techniq ues were employed. CTDIvol: 53.2 mGy. DLP: 991 mGy-cm. mGy. LIMITATIONS: None. FINDINGS: VENTRICLES: Normal size and contour. CEREBRUM: No masses. No hemorrhage. No midline shift. No evidence for acute infarction. Normal gra y/white matter differentiation. No areas of low density in the white matter. CEREBELLUM: No masses. No hemorrhage. No alteration of density. No evidence for acute infarction. EXTRAAXIAL SPACES: No fluid collections. No masses. ORBITS AND GLOBE: No intra- or extraconal masses. Normal contour of globe without masses. CALVARIUM: No fracture. PARANASAL SINUSES: Mucosal thickening of the left sphenoid sinus. SOFT TISSUES: No mass or hematoma. OTHER: No other significant finding. IMPRESSION: 1. No acute intracranial pathology. No noncontrast intracranial findings to explain he adache. 2. Mucosal thickening of the left sphenoid sinus. Correlate for signs and symptoms of sinusitis. EVIDENCE OF ACUTE STROKE: NO. COMMENT: Quality ID # [id number]: Final reports with documentation of one or more dose reduction techniques (e.g., Automated exposure control, adjustment of the mA and/or kV according to patient size, use of iterative reconstruction technique) TECHNICAL DOCUMENTATION: JOB ID: [id number] [employer]- All Rights Reserved Reading location - IP/workstation name: [email or web address]
[2018-11-15 13:43] VITALS: BP 119/76
== END 2018-11-15 13:59 | disposition home or self-care (01) ==
LOC: ER 08:30
DX: J32.3 Chronic sphenoidal sinusitis (principal); R51 Headache; E86.0 Dehydration; I12.9 Hypertensive chronic kidney disease with stage 1 through stage 4 chronic kidney disease, or unspecified chronic kidney disease; N18.9 Chronic kidney disease, unspecified; F17.200 Nicotine dependence, unspecified, uncomplicated; J44.9 Chronic obstructive pulmonary disease, unspecified; G89.29 Other chronic pain; Z79.891 Long term (current) use of opiate analgesic; R27.0 Ataxia, unspecified; Z99.3 Dependence on wheelchair; Z88.8 Allergy status to other drugs, medicaments and biological substances
CPT/HCPCS: 99284; 96374; 36415; 85025; 80053; 70450; J2765; J7030; 96361

== ENCOUNTER → 2019-03-26 | Outpatient (CLI) | payer MEDICARE, MEDICAID ==
--- NOTE | 2019-03-26 15:41 | RADIOLOGY REPORT (SQ) ---
EXAM DESCRIPTION: KNEE RIGHT 4 VIEWS COMPLETED DATE/TIME: 03/26/2019 3:09 pm REASON FOR STUDY: JORDIN KNEE PAIN M25.562 PAIN IN LEFT KNEE M25.561 PAIN IN RIGHT KNEE COMPARISON: None. NUMBER OF VIEWS: Four views. TECHNIQUE: AP, lateral, and both oblique radiographic images acquired of the right knee. LIMITATIONS: None. FINDINGS: MINERALIZATION: Normal. BONES: No acute fracture or dislocation. No worrisome bone lesions. No significant osteophytes. JOINT: No effusion. No chondrocalcinosis. OTHER: No other significant finding. IMPRESSION: NEGATIVE STUDY OF THE RIGHT KNEE. NO EXPLANATION FOR PAIN. TECHNICAL DOCUMENTATION: JOB ID: [id number] [email or web address]- All Rights Reserved Reading location - IP/workstation name: [email or web address]
--- NOTE | 2019-03-26 15:42 | RADIOLOGY REPORT (SQ) ---
EXAM DESCRIPTION: KNEE LEFT 4 VIEWS COMPLETED DATE/TIME: 03/26/2019 3:08 pm REASON FOR STUDY: JORDIN KNEE PAIN M25.562 PAIN IN LEFT KNEE M25.561 PAIN IN RIGHT KNEE COMPARISON: 04/29/2013. NUMBER OF VIEWS: Four views. TECHNIQUE: AP, lateral, and both oblique radiographic images acquired of the left knee. LIMITATIONS: None. FINDINGS: MINERALIZATION: Normal. BONES: No acute fracture or dislocation. No worrisome bone lesions. No significant osteophytes. JOINT: No effusion. No chondrocalcinosis. OTHER: No other significant finding. IMPRESSION: NEGATIVE STUDY OF THE LEFT KNEE. NO EXPLANATION FOR PAIN. TECHNICAL DOCUMENTATION: JOB ID: [id number] [employer]- All Rights Reserved Reading location - IP/workstation name: [email or web address]
== END ==
LOC: OD 14:44
PROVIDERS: ATTEND Family Medicine
DX: M25.561 Pain in right knee (principal); M25.562 Pain in left knee

== ENCOUNTER → 2019-11-19 | Day surgery (SDC) | payer MEDICAID, MEDICARE ==
[~2019-11-19] MED LIST: BUPIVACAINE HCL 0.5 % INJ/PF 30 ML SDV ONE; LIDOCAINE 1% INJ-PF (10 MG/ML) 30 ML SDV ONE
--- NOTE | 2019-11-19 08:31 | Operative Report ---
PROCEDURE: 1. bilateral articular branch of femoral nerve radiofrequency denervation 2. bilateral articular branch of obturator nerve radiofrequency denervation Preoperative Diagnosis: bilateral osteoarthritis Hip Postoperative Diagnosis: bilateral osteoarthritis Hip DATE OF PROCEDURE: November 19, 2019 ANESTHESIA: Local anesthesia COMPLICATIONS: none reported PROCEDURE IN DETAIL: Hx/PE/meds/allergies/applicable labs reviewed. No changes and no contraindications were found. Full description of the procedure was provided including benefits as well as possible complications including transient increased pain, stomach irritation, mood alteration, transient weakness or parathesias as well as more serious nerve injury, bleeding, infection or allergic reaction. Informed consent was obtained and documented. The patient was brought to the procedure room and placed on the exam table in a comfortable supine position. The place for the needle placement was obtained by manual palpation with radiographic confirmation. The sterile field was prepared and sterile drapes. Local anesthesia superficial and deep was provided by local infiltration of 6 ml 1 % lidocaine. Using fluoroscopic guidance a 17g 150 mm radiofrequency needle with 4mm active tip was advanced to the anteromedial aspect of the extraarticular portion of the hip joint where the articular branch of the femoral nerve traverses until a bony endpoint is felt. Attempted aspiration yielded no blood. Motor testing was then performed with 2hz at 2 volts and no lower extremity motor stimulation was observed. 2 cc of .5 % marcaine was injected through the RF needle. A radiofrequency lesion of the articular branch of the femoral nerve was then performed at 80 degrees C for 2 min and 30 seconds. The needle was then withdrawn. A second needle was placed and using fluoroscopic confirmation with ULTRASOUND guidance the needle was advanced to the incisura of the acetabulum where the articular branch of the obturator nerve traverses until a bony endpoint was met. Attempted aspiration yielded no blood. Radiographs were made. Motor testing was then performed with 2hz at 2 volts and no lower extremity motor stimulation was observed. 2cc .5 % marcaine was injected through the RF needle. A radiofrequency lesion of the articular branch of the obturator nerve was then performed at 80 degrees C for 2 minutes and 30 seconds. The needle was then withdrawn. The patient tolerated the procedure well. After observation the patient was discharged with instructions and follow up. They were also provided contact info rmation to call regarding any concerning symptoms or questions. IMPRESSION: 1. Successful radiofrequency ablations of the articular branches of the obturator and femoral nerves was performed on bilateral hips. 2. Follow up in 1-2 weeks to assess the efficacy of the procedure. 3. Estimated Blood Loss: 0 4. Disposition: home
== END ==
LOC: RAD 07:44
PROVIDERS: ATTEND Family Medicine
DX: M16.0 Bilateral primary osteoarthritis of hip (principal)
CPT/HCPCS: 64640 ×2; J3490 ×2